=== PATIENT | female | born 1975 | race Two or more races ===

== ENCOUNTER 2019-07-03 13:30 | Inpatient (IN) | payer OTHER ==
[~2019-07-03] VITALS: Ht 149.9 cm; Wt 62.6 kg
[2019-07-03] MEDS ORDERED: POLY119PG PO (15:24)
[2019-07-03] MEDS ORDERED: HYFIBER WI12 GM/302 PO (15:25)
== END 2019-07-19 18:08 | disposition home or self-care (01) | DRG 331 ==
LOC: O/R 13:30 → SURG 07-16 07:37
PROVIDERS: ADMIT Colon & Rectal Surgery
PROC: 0DJD8ZZ Inspection of Lower Intestinal Tract, Via Natural or Artificial Opening Endoscopic (ICD-10-PCS; 2019-07-16)
PROC: 0DTN4ZZ Resection of Sigmoid Colon, Percutaneous Endoscopic Approach (ICD-10-PCS; principal; 2019-07-16 10:45)
DX: K57.32 Diverticulitis of large intestine without perforation or abscess without bleeding (principal); K63.89 Other specified diseases of intestine; D56.8 Other thalassemias

== ENCOUNTER 2020-07-31 06:15 | Day surgery (SDC) | payer OTHER ==
[~2020-07-31 06:15] MED LIST: HYFIBER WI12 GM/302 PO; POLY119PG PO
== END 2020-07-31 10:27 | disposition home or self-care (01) ==
LOC: AMB-ENDOS 06:15
PROVIDERS: ATTEND Colon & Rectal Surgery
DX: K57.32 Diverticulitis of large intestine without perforation or abscess without bleeding (principal); K64.1 Second degree hemorrhoids; Z20.828 Contact with and (suspected) exposure to other viral communicable diseases